=== PATIENT | female | born 1975 | race Caucasian/White ===

== ENCOUNTER 2016-05-25 16:27 | Emergency (ER) ==
[2016-05-25 16:28] VITALS: BMI 18.8
[2016-05-25 16:38] VITALS: BP 91/61; TEMP 98.7
[2016-05-25] MEDS ORDERED: SODIUM CHLORIDE 1,000 ML IV STA (16:38)
[2016-05-25] MEDS ORDERED: ZOFRAN 4 MG/2 ML IVP STA ×2 (16:38→17:56)
[2016-05-25] MEDS ORDERED: MORPHINE 4 MG/ML SYRINGE IVP STA (16:38)
[2016-05-25 17:35] LABS: BASOPHILS % (AUTO) 0.1 % (0.0-3.0); HEMOGLOBIN 12.1 g/dl (12.0-16.0); IMMATURE GRANULOCYTE % (AUTO) 0.6 % (0.0-5.0); LYMPHOCYTES # (AUTO) 0.5 K/uL (0.60-3.4); LYMPHOCYTES % (AUTO) 6.5 (10.0-50.0); MEAN CORPUSCULAR HEMOGLOBIN 30.6 pg (27.0-31.0); MEAN CORPUSCULAR HGB CONC 33.6 (31.8-35.4); MEAN CORPUSCULAR VOLUME 91.1 fl (81.0-99.0); MONOCYTES # (AUTO) 0.2 K/uL (0.4-2.0); MONOCYTES % (AUTO) 2.4 (0-10); NEUTROPHILS # (AUTO) 7.5 K/ul (2.0-6.9); NEUTROPHILS % (AUTO) 90.4; PLATELET COUNT 170 10^3/uL (140-440); RED BLOOD COUNT 3.95 10^6/ul (4.20-5.40); WHITE BLOOD COUNT 8.32 K/ul (4.6-10.2)
[2016-05-25 17:44] LABS: FLU INTERNAL QC INTERNAL QC VALID; RAPID FLU A NEGATIVE (NEGATIVE); RAPID FLU B NEGATIVE (NEGATIVE)
[2016-05-25 17:56] LABS: ALBUMIN 3.5 g/dL (3.4-5.0); ALBUMIN/GLOBULIN RATIO 1.4; ANION GAP 10.7; BILIRUBIN,TOTAL 1.29 mg/dL (0.00-1.20); BUN/CREATININE RATIO 22.41; CALCIUM 8.6 mg/dL (8.2-10.2); CREATININE 0.58 mg/dL (0.60-1.30); POTASSIUM 3.7 mmol/L (3.5-5.10)
--- NOTE | 2016-05-25 18:08 | ED.PDOC ---
General ED Provider: Dr. KATHIE LAUGHLIN Chief Complaint: Nausea/Vomiting Stated Complaint: n/v/ abdominal pain Time Seen by Physician: 16:30 Mode of Arrival: Walk-In Information Source: Patient Exam Limitations: No limitations Primary Care Provider: MANDIE SHARPE Nursing and Triage Documentation Reviewed and Agree: Yes GI Complaint Exam - Abdominal Pain Complaint/Exam Onset: Gradual Duration: today Symptoms Are: Still present Timing: Intermittent Initial Severity: Moderate Current Severity: Moderate Location of Pain: Diffuse Character: Reports: Aching, Cramping Aggravating: Reports: None Alleviating: Reports: None Associated Signs and Symptoms: Denies: Diaphoresis, Fever, Cough, Chest pain, Dizziness, Back pain, Constipation, Blood in stool, Dysuria, Urinary frequency, Decreased urine output, Decreased appetite, Vaginal bleeding, Vaginal discharge , Nausea, Vomiting, Diarrhea, Sore throat, Decreased activity Related History: Reports: Similar episode AAA Risk Factors: Reports: None Cardiac Risk Factors: Reports: None Ectopic Risk Factors: Reports: None Ovarian Torsion Risk Factors: Reports: None Surgical Obstruction Risk Factors: Reports: None Related Surgical History: Reports: None Patient Rh Status: Unknown Review of Systems - Review Of Systems Constitutional: Reports: Malaise, Weakness, Loss of appetite Eyes: Reports: No symptoms Ears, Nose, Mouth, Throat: Reports: No symptoms Respiratory: Reports: No symptoms Cardiac: Reports: No symptoms GI: Reports: Abdominal pain, Nausea, Vomiting : Reports: No symptoms Musculoskeletal: Reports: No symptoms Skin: Reports: No symptoms Neurological: Reports: No symptoms Endocrine: Reports: No symptoms Hematologic/Lymphatic: Reports: No symptoms All Other Systems: Reviewed and Negative Past Medical History - Past Medical History Previously Healthy: Yes Endocrine: Reports: None Cardiovascular: Reports: None Respiratory: Reports: None Hematological: Reports: None Gastrointestinal: Reports: None Genitourinary: Reports: None Neuro/Psych: Reports: Migraine Musculoskeletal: Reports: None Cancer: Reports: None Last Menstrual Period: none - Surgical History General Surgical History: Reports: Hysterectomy - Family History Family History: Reports: Unknown - Social History Smoking Status: Never smoker Hx Substance Use: No Alcohol Screening: None - Immunizations Tetanus Shot up to Date: Yes Physical Exam - Physical Exam Appearance: Ill-appearing Ill-appearing: Moderate Pain Distress: Moderate Eyes: JORGE, EOMI, Conjunctiva clear ENT: Ears normal, Nose normal, Oropharynx normal Respiratory: Airway patent, Breath sounds clear, Breath sounds equal, Respirations nonlabored Cardiovascular: RRR, Pulses normal, No rub, No murmur GI/: Soft, Nontender, No masses, Bowel sounds normal, No Organomegaly Musculoskeletal: Normal strength, ROM intact, No edema, No calf tenderness Skin: Warm, Dry, Normal color Neurological: Sensation intact, Motor intact, Reflexes intact, Cranial nerves intact, Alert, Oriented Psychiatric: Affect appropriate, Mood appropriate Interpretation - Radiology Interpretation Radiology Interpretation By: Radiologist Critical Care Note - Critical Care Note Total Time (mins): 0 Course - Course Hematology/Chemistry: 05/25/16 16:36 05/25/16 16:51 Orders, Labs, Meds: Lab Review 05/25/16 05/25/16 05/25/16 16:36 16:51 17:20 WBC 8.32 RBC 3.95 L Hgb 12.1 Hct 36.0 L MCV 91.1 MCH 30.6 MCHC 33.6 RDW Coeff of Lorie 12.3 Plt Count 170 Immature Gran % (Auto) 0.6 Neut % (Auto) 90.4 Lymph % (Auto) 6.5 L Nuckolls % (Auto) 2.4 Eos % (Auto) 0.0 Baso % (Auto) 0.1 Immature Gran # (Auto) 0.1 Neut # 7.5 H Lymph # 0.5 L Nuckolls # 0.2 L Eos # 0.0 Baso # 0.0 Sodium 139 Potassium 3.7 Chloride 111 H Carbon Dioxide 21 Anion Gap 10.7 BUN 13 Creatinine 0.58 L Estimated GFR (MDRD) 113.00 BUN/Creatinine Ratio 22.41 Glucose 113 H Calcium 8.6 Total Bilirubin 1.29 H AST 17 ALT 17 Alkaline Phosphatase 55 Total Creatine Kinase 46 Total Protein 6.0 L Albumin 3.5 Globulin 2.5 Albumin/Globulin Ratio 1.40 Amylase 49 Lipase 5 L Influenza A (Rapid) Negative Influenza B (Rapid) Negative Orders Category Date Time Status EKG-(ED ONLY) Stat CARDIO 05/25/16 16:38 Ordered ED IV/MEDIPORT/POWERPORT .ONCE EMERGENCY 05/25/16 16:38 Active AMYLASE Stat LAB 05/25/16 16:51 Completed BLOOD CULTURE Stat LAB 05/25/16 16:51 Received CBC W/ AUTO DIFF Stat LAB 05/25/16 16:36 Completed COMPREHENSIVE METABOLIC PANEL Stat LAB 05/25/16 16:51 Completed CREATINE KINASE Stat LAB 05/25/16 16:51 Completed LIPASE Stat LAB 05/25/16 16:51 Completed MOLECULAR GROUP A STREP Stat LAB 05/25/16 17:20 Results RAPID FLU A/B Stat LAB 05/25/16 17:20 Completed STREP SCREEN Stat LAB 05/25/16 17:20 Results URINALYSIS C & S IF INDICATED Stat LAB 05/25/16 16:36 Uncollected 0.9 % Sodium Chloride [Saline Flush] MEDS 05/25/16 16:38 Active 1 syr IVF PRN PRN Morphine Sulfate [Morphine 4 mg/ml Syringe] MEDS 05/25/16 16:38 Discontinued 4 mg IVP ONCE STA Ondansetron HCl/Pf [Zofran 4 mg/2 ml] MEDS 05/25/16 16:38 Discontinued 4 mg IVP ONCE STA Ondansetron HCl/Pf [Zofran 4 mg/2 ml] MEDS 05/25/16 17:56 Discontinued 4 mg IVP ONCE STA Sodium Chloride 0.9% [Sodium Chloride] 1,000 ml MEDS 05/25/16 16:[address] ABDOMEN/PELVIS WO CONTRAST Stat RADS 05/25/16 16:[address] CHEST W/O CONTRAST Stat RADS 05/25/16 16:37 Ordered Medications Generic Name Dose Route Start Last Admin Trade Name Freq PRN Reason Stop Dose Admin Sodium Chloride 1 syr 05/25/16 16:38 05/25/16 17:14 Saline Flush IVF 1 syr PRN PRN Administration To flush IV Discontinued Medications Generic Name Dose Route Start Last Admin Trade Name Freq PRN Reason Stop Dose Admin Sodium Chloride 1,000 mls @ 1,000 mls/hr 05/25/16 16:38 05/25/16 17:14 Sodium Chloride IV 05/25/16 17:37 1,000 mls/hr BOLUS STA Administration Morphine Sulfate 4 mg 05/25/16 16:38 05/25/16 17:17 Morphine 4 Mg/Ml Syringe IVP 05/25/16 16:39 4 mg ONCE STA Administration Ondansetron HCl 4 mg 05/25/16 16:38 05/25/16 17:15 Zofran 4 Mg/2 Ml IVP 05/25/16 16:39 4 mg ONCE STA Administration Ondansetron HCl 4 mg 05/25/16 17:56 Zofran 4 Mg/2 Ml IVP 05/25/16 17:57 ONCE STA Vital Signs: Temp Pulse Resp BP Pulse Ox 05/25/16 16:28 98.7 F 80 20 91/61 99 Departure - Departure Time of Disposition: 19:00 Disposition: HOME SELF-CARE Discharge Problem: Nausea, Vomiting, Abdominal pain Instructions: Abdominal Pain (ED) Condition: Good Pt referred to PMD for follow-up: No Additional Instructions: Please call your Family Physician as soon as possible to schedule a follow-up appointment. Allergies/Adverse Reactions: Allergies Penicillins Adverse Reaction (Verified 05/25/16 16:37) Rash Home Medications: Ambulatory Orders Ibuprofen [Motrin] 600 mg PO Q6H PRN #30 tablet 03/05/16 Disposition Discussed With: Patient, Family
--- NOTE | 2016-05-25 18:50 | CT ---
EXAM: CT abdomen pelvis without intravenous contrast 05/25/2016. Sagittal and coronal reformatted images obtained HISTORY: Pain COMPARISON: None. FINDINGS: The liver, gallbladder, adrenal glands, kidneys, spleen and pancreas show no acute abnorm ality. There is no bowel obstruction. Normal appendix. Unremarkable urinary bladder. No free air or free fluid. Anterolisthesis of L5 on S1 secondary to bilateral L5 pars defects. No acute osseous abnormality. IMPRESSION: 1. No urinary or bowel obstruction and normal appendix. 2. Anterolisthesis of L5 on S1 secondary to bilateral L5 pars defects. 3. Technically limited examination due to the lack of intravenous contrast.
--- NOTE | 2016-05-25 18:50 | CT ---
EXAM: CT chest without contrast HISTORY: Cough. TECHNIQUE: Multi-slice transaxial helical. Coronal and sagital reformations were performed. COMPARISON: None FINDINGS: The heart is normal in size. No significant atherosclerosis is seen. No evidence of mediastinal ad enopathy is seen. Visualized thyroid appears unremarkable. There is no axillary adenopathy. Please see abdominal report from same day for description of the abdominal findings. Osseous struct ures appear grossly unremarkable. There is minimal biapical scarring. No evidence of focal airspace opacity, pleural effusion, or pne umothorax. IMPRESSION: No acute cardiopulmonary findings.
== END 2016-05-25 19:25 | disposition home or self-care (01) ==
LOC: ED 16:27
DX: R11.2 Nausea with vomiting, unspecified (principal); R10.84 Generalized abdominal pain
CPT/HCPCS: 36415; 80053; 82150; 82550; 83690; 85025; 87040; 87651; 87804; 87880; 93005; 93010; 96360; 96361; 96375; 96376; 99283